=== PATIENT | male | born 1990 | race African-American/Black ===

== ENCOUNTER 2024-10-21 13:30 | Emergency (ER) | payer OTHER, MEDICAID ==
[~2024-10-21] VITALS: Ht 175.3 cm; Wt 86.0 kg
[2024-10-21 13:37] VITALS: O2SAT 100
[2024-10-21] MEDS: KETOROLAC 30MG/ML VIAL IM ONE (15:12)
[2024-10-21] MEDS ORDERED: CYCL10TA21 MT (16:03)
[2024-10-21] MEDS ORDERED: ACET-2708 MT (16:03)
[2024-10-21] MEDS ORDERED: NAPR275T96 MT (16:03)
[2024-10-21 17:11] VITALS: BP 146/89; PULSE 72; RESP 15; TEMP 36.9; O2SAT 99
== END 2024-10-21 17:13 | disposition home or self-care (01) ==
LOC: ER 13:30
DX: S16.1XXA Strain of muscle, fascia and tendon at neck level, initial encounter (principal); S90.02XA Contusion of left ankle, initial encounter; Z79.899 Other long term (current) drug therapy; V49.9XXA Car occupant (driver) (passenger) injured in unspecified traffic accident, initial encounter; Y93.89 Activity, other specified; Y92.89 Other specified places as the place of occurrence of the external cause; Y99.8 Other external cause status
CPT/HCPCS: 73610; 96372; 99283; J1885; Z7610 ×2